=== PATIENT | female | born 1950 | race Caucasian/White ===

== ENCOUNTER 2020-03-09 16:18 | Emergency (ER) | payer MEDICARE, SELFPAY ==
--- NOTE | ~2020-03-09 | XR_ITS ---
XR wrist RT min 3V 03/09/2020 17:07 Indication: Right wrist pain. Procedure: 4 views right wrist Comparison: No prior studies for comparison. Findings: There is osteoarthritis of the triscaphe and radiocarpal joints. There are degenerative lavinia nges of the first MCP and IP joints. No acute fracture or traumatic malalignment.. There are degenera tive subchondral cyst of the distal aspect of the radius. There are mild degenerative changes of the second and third MCP joints. Impression: 1: Mild-moderate polyarticular osteoarthritis. Reviewed, dictated and finalized at location A. [facility] NURSE Impression: 1: Mild-moderate polyarticular osteoarthritis.
[2020-03-09 16:50] VITALS: BP 157/70; PULSE 92; RESP 14; TEMP 36.8; O2SAT 99
--- NOTE | 2020-03-09 16:56 | ED.UPPEXIN ---
HPI - Extremity Injury (Upper) General Chief Complaint: Extremity Injury, Upper Stated Complaint: Extremity Injury, Upper Time Seen by Provider: 03/09/20 16:56 Source: patient and RN notes reviewed History of Present Illness HPI narrative: Patient is a 69-year-old female who presents the urgent care with complaints of right wrist swelling and pain. Patient states that she woke up yesterday with the swelling and the pain has increased over the last 24 hours. Patient states that she has put ice on it and is taken Tylenol for the pain. Patient states that she is right-hand dominant. Denies of any trauma or known injury. States that she does have a history of arthritis in other joints but has never been diagnosed in the wrist/hands. Patient states that she did have a small cut to the top of the right wrist around [place] and it seems to be healing well without any changes. No other acute complaints. No acute distress noted. Patient aware of the plan of care. Some parts of this dictation were generated by voice recognition software and may contain typographical and/or grammatical inaccuracies. Related Data Home Medications Medication Instructions Recorded Confirmed amlodipine 5 mg PO DAILY 03/09/20 03/09/20 amlodipine 5 mg PO DAILY 03/09/20 03/09/20 aspirin [Adult Aspirin EC Low 81 mg PO DAILY 03/09/20 03/09/20 Strength] atorvastatin 10 mg PO DAILY 03/09/20 03/09/20 atorvastatin 10 mg PO DAILY 03/09/20 03/09/20 buspirone 5 mg PO BID 03/09/20 03/09/20 lamotrigine 100 mg PO DAILY 03/09/20 03/09/20 latanoprost 1 drp EACH EYE DAILY 03/09/20 03/09/20 levothyroxine 150 mcg PO DAILY 03/09/20 03/09/20 protriptyline 10 mg PO HS 03/09/20 03/09/20 sodium bicarbonate 325 mg PO DAILY 03/09/20 03/09/20 Allergies Allergy/AdvReac Type Severity Reaction Status Date / Time Penicillins Allergy Intermediate Rash Verified 03/09/20 16:41 Review of Systems Review of Systems: Narrative: CONSTITUTIONAL: Denies fever, chills, or sweats. EYES: Denies visual changes, redness, or discharge. ENT: Denies rhinorrhea, congestion, sore throat, or otalgia. CARDIOVASCULAR: Denies chest pain, palpitations, or edema. RESPIRATORY: Denies cough or dyspnea. GASTROINTESTINAL: Denies abdominal pain, nausea, vomiting, or diarrhea. GENITOURINARY: Denies dysuria or hematuria. SKIN: Denies rash or itching. MUSCULOSKELETAL: Reports of right wrist swelling and pain NEUROLOGIC: Denies headache, numbness, or weakness. All other systems reviewed are negative, except as documented in HPI. PMFSH Comments At the time of my signature, I reviewed and agree with the nursing past medical, surgical, social, and family history. There is no relevant family history pertinent to the patient complaint. Exam Narrative: Exam Narrative: GENERAL: This is a well-nourished, well-developed patient, in no apparent distress. HEAD: normocephalic, atraumatic. EYES: PERRL. Sclera clear/white. Vision is grossly intact. EARS: External ears normal NOSE: External nose normal with no obvious nasal discharge, nares without redness, no rhinorrhea. THROAT: Mucous membranes moist NECK: Neck supple SKIN: 1 cm scabbed healing superficial laceration to the top of the right wrist without obvious signs of cellulitis. 2 cm area of ecchymosis to the radial aspect of the right wrist. Warm, intact with no suspicious lesions or rash, good texture and turgor. NEURO: awake, alert, and oriented to person, place and time. There were no obvious focal neurologic abnormalities. EXTREMITIES: Mild edema to the right wrist extending into the right dorsal hand. Unequal handgrips due to pain of the right wrist/hand. Range of motion limited due to pain. Positive strong right radial pulse with capillary refill less than 2 seconds. Course Vital Signs Vital signs: Vital Signs Temperature 98.2 F 03/09/20 16:50 Pulse Rate 92 03/09/20 16:50 Respiratory Rate 14 03/09/20 16:50 Blood Pressure 157/70 H 03/09/20
== END 2020-03-09 17:18 | disposition home or self-care (01) ==
PROVIDERS: Emergency Provider Nurse Practitioner Family; PCP Family Medicine
DX: M19.031 Primary osteoarthritis, right wrist (principal); E78.00 Pure hypercholesterolemia, unspecified; I12.9 Hypertensive chronic kidney disease with stage 1 through stage 4 chronic kidney disease, or unspecified chronic kidney disease; N18.30 Chronic kidney disease, stage 3 unspecified; M19.90 Unspecified osteoarthritis, unspecified site; Z96.653 Presence of artificial knee joint, bilateral; Z96.612 Presence of left artificial shoulder joint; Z96.611 Presence of right artificial shoulder joint; E03.9 Hypothyroidism, unspecified; H40.9 Unspecified glaucoma; F31.9 Bipolar disorder, unspecified
CPT/HCPCS: 73110; 99213; G0463